=== PATIENT | male | born 1970 | race Caucasian/White ===

== ENCOUNTER 2018-12-11 08:56 | Emergency (ER) | payer SELFPAY ==
[2018-12-11 09:22] VITALS: BP 164/111
--- NOTE | 2018-12-11 09:37 | PHYS DOC ---
Adult General Chief Complaint Chief Complaint: ABDOMINAL PAIN [facility] HPI Patient is a 48-year-old male who presents with complaint of abdominal pain for about the last week. Patient indicates that he has noticed a lot of swelling in his abdomen as well as in both his legs. He states that that swelling has been progressively worsening over the last 2-3 weeks. He states that 3 weeks ago his weight had been 212 and today he notes that he has gained over 30 pounds in the last 3 weeks which she believes is primarily due to fluid retention. He states that up until about 3 weeks ago he had been drinking fairly heavily, consuming approximately 10-12 beers per day. He denies any chest pain or shortness of breath. He does admit to a cough over the last week. He denies any nausea, vomiting or diarrhea. He does complain of constipation. Patient rates his pain as being moderate. He states that nothing is improving his symptoms.[] Review of Systems Review of Systems Constitutional: Denies fever or chills [] Respiratory: Denies cough or shortness of breath [] Cardiovascular: No additional information not addressed in HPI [] GI: Complains of abdominal pain without vomiting or diarrhea [] Musculoskeletal: Complains of lower extremity swelling and pain [] Integument: Denies rash or skin lesions [] All other systems were reviewed and found to be within normal limits, except as documented in this note. Allergies Allergies Allergies Coded Allergies Type Severity Reaction Last Updated Verified No Known Drug Allergies 12/11/18 No Physical Exam Physical Exam Constitutional: Well developed, well nourished, no acute distress, non-toxic appearance. [] HENT: Normocephalic, atraumatic, bilateral external ears normal, oropharynx moist, no oral exudates, nose normal. [] Eyes: PERRLA, EOMI, conjunctiva normal, no discharge. [] Neck: Normal range of motion, no tenderness, supple, no stridor. [] Cardiovascular: Tachycardic rate with regular rhythm[] Lungs & Thorax: Bilateral breath sounds clear to auscultation [] Abdomen: Bowel sounds normal, mildly distended with diffuse tenderness. [] Skin: Warm, dry, no erythema, no rash. [] Extremities: No tenderness, no cyanosis, no clubbing, ROM intact, with 3+ pitting edema. [] Neurologic: Alert and oriented X 3, normal motor function, normal sensory function, no focal deficits noted. [] EKG EKG EKG demonstrates sinus tachycardia with a rate of 105.[] Radiology/Procedures Radiology/Procedures [] Impressions: PROCEDURE: CT ABD PELV W/ IV CONTRST ONLY Examination: CT ABD PELV W/ IV CONTRST ONLY History: Abdominal pain and distention Comparison/Correlation: None Findings: Axial images of the abdomen and pelvis were obtained without contrast. Sagittal and coronal reformatted images were provided. Moderate-sized right pleural effusion is present. Adjacent atelectatic consolidation is present. Calcified granuloma involves the left lateral basilar aspect. Moderate amount of ascites is noted about the liver and right flank. Ascites is also noted in the left abdomen as well. Moderate quantity of intraperitoneal pelvic fluid evident. Large vascular collaterals are noted with splenorenal shunts noted. Prominent left renal vein noted. Vascular collaterals noted anterior to the left kidney. Liver has slight nodularity to the contour inferiorly raising question of cirrhosis.. Spleen is at the upper limits of normal for size. Pancreas is normal. Gallbladder fossa is unremarkable. Mild gaseous distention of abdominal small bowel primarily are noted in the mid abdomen. Collapsed distal small bowel loops are also seen. Stool noted in the sigmoid and rectum. No enlarged abdominal or pelvic lymph nodes. Anasarca noted. Urinary bladder is unremarkable. Impression: Moderate amount of ascites. Anasarca. Right pleural effusion with adjacent atelectasis. Nodular contour of the liver of concern for cirrhosis or other fibrotic process. Vascular collaterals of concern for portal hypertension. Distended mid abdominal small bowel loops. While this may represent ileus, possibility of obstruction is not excluded. PQRS Compliance Statement: One or more of the following individualized dose reduction techniques were utilized for this examination: 1. Automated exposure control 2. Adjustment of the mA and/or kV according to patient size 3. Use of iterative reconstruction technique Electronically signed by: Danilo Lancaster MD (12/11/2018 10:48 AM) [id number] Course & Med Decision Making Course & Med Decision Making Pertinent Labs and Imaging studies reviewed. (See chart for details) [] Dragon Disclaimer Dragon Disclaimer This electronic medical record was generated, in whole or in part, using a voice recognition dictation system. Departure Departure: Impression: Primary Impression: Anasarca Additional Impressions: Jaundice Thrombocytopenia Ascites due to alcoholic cirrhosis Generalized abdominal pain Disposition: 07 AGAINST MEDICAL ADVICE Condition: GOOD Referrals: PCP,NO (PCP) Problem Qualifiers RAMNOA FIGUEROA Jr. DO Dec 11, 2018 09:37
[2018-12-11 09:53] LABS: BASO # 0.1 x10^3/uL (0.0-0.2); BASO % 1 % (0-3); EOS # 0.1 x10^3/uL (0.0-0.7); EOS % 2 % (0-3); HEMATOCRIT 28.9 % (39.0-53.0); HEMOGLOBIN 9.9 g/dL (13.0-17.5); LYMPH % 28 % (24-48); MEAN CORPUSCULAR HEMOGLOBIN 36 pg (25-35); MEAN CORPUSCULAR HGB CONC 34 g/dL (31-37); MEAN CORPUSCULAR VOLUME 103 fL (79-100); MONO % 14 % (0-9); NEUT % 55 % (31-73); PLATELET COUNT 59 x10^3/uL (140-400); RED CELL DISTRIBUTION WIDTH 18.4 % (11.5-14.5); WHITE BLOOD COUNT 7.2 x10^3/uL (4.0-11.0)
[2018-12-11 09:59] LABS: ALBUMIN 1.3 g/dL (3.4-5.0); CALCIUM 7.4 mg/dL (8.5-10.1); GFR 102.3; POTASSIUM 3.4 mmol/L (3.5-5.1); TOTAL BILIRUBIN 6.5 mg/dL (0.2-1.0)
[2018-12-11 10:03] LABS: CREATININE 0.8 mg/dL (0.7-1.3); DIRECT BILIRUBIN 3.7 mg/dL (0.0-0.2); TOTAL PROTEIN 8.9 g/dL (6.4-8.2)
[2018-12-11] MEDS ORDERED: IOHEXOL 300 MG/ML 75 ML VIAL. IV ONE (10:30)
--- NOTE | 2018-12-11 10:51 | RAD ---
Examination: CT ABD PELV W/ IV CONTRST ONLY History: Abdominal pain and distention Comparison/Correlation: None Findings: Axial images of the abdomen and pelvis were obtained without contrast. Sagittal and coronal reformatted images were provided. Moderate-sized right pleural effusion is present. Adjacent atelectatic consolidation is present. Calcified granuloma involves the left lateral basilar aspect. Moderate amount of ascites is noted about the liver and right flank. Ascites is also noted in the left abdomen as well. Moderate quantity of intraperitoneal pelvic fluid evident. Large vascular collaterals are noted with splenorenal shunts noted. Prominent left renal vein noted. Vascular collaterals noted anterior to the left kidney. Liver has slight nodularity to the contour inferiorly raising question of cirrhosis.. Spleen is at the upper limits of normal for size. Pancreas is normal. Gallbladder fossa is unremarkable. Mild gaseous distention of abdominal small bowel primarily are noted in the mid abdomen. Collapsed distal small bowel loops are also seen. Stool noted in the sigmoid and rectum. No enlarged abdominal or pelvic lymph nodes. Anasarca noted. Urinary bladder is unremarkable. Impression: Moderate amount of ascites. Anasarca. Right pleural effusion with adjacent atelectasis. Nodular contour of the liver of concern for cirrhosis or other fibrotic process. Vascular collaterals of concern for portal hypertension. Distended mid abdominal small bowel loops. While this may represent ileus, possibility of obstruction is not excluded. PQRS Compliance Statement: One or more of the following individualized dose reduction techniques were utilized for this examination: 1. Automated exposure control 2. Adjustment of the mA and/or kV according to patient size 3. Use of iterative reconstruction technique Electronically signed by: Danilo Lancaster MD (12/11/2018 10:48 AM) [id number]
[2018-12-11 11:14] LABS: ANISOCYTOSIS SLIGHT; HYPOCHROMIA SLIGHT; MICROCYTOSIS MOD; OVALOCYTES FEW; PLT ESTIMATE DECREASED (ADEQUATE); POLYCHROMASIA SLIGHT; SPHEROCYTES OCC; TARGET CELLS FEW; TEAR DROP CELLS OCC
--- NOTE | 2018-12-11 14:10 | EKG ---
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
== END 2018-12-11 11:27 | disposition left against medical advice (07) ==
LOC: ER 08:56
DX: R60.1 Generalized edema (principal); R17 Unspecified jaundice; D69.6 Thrombocytopenia, unspecified; K70.31 Alcoholic cirrhosis of liver with ascites; R10.84 Generalized abdominal pain; J90 Pleural effusion, not elsewhere classified
CPT/HCPCS: 36415; 74177; 80048; 80076; 83690; 83880; 84484; 85025; 85610; 85730; 93005; 99285; Q9967